=== PATIENT | male | born 1995 | race Caucasian/White ===

== ENCOUNTER 2020-01-05 15:22 | Emergency (ER) | payer OTHER ==
[~2020-01-05] VITALS: Ht 172.7 cm; Wt 87.5 kg
[2020-01-05 15:27] VITALS: Ht 172.7 cm; Wt 87.5 kg
[2020-01-05 16:06] VITALS: BP 132/88
== END 2020-01-05 16:06 | disposition home or self-care (01) ==
LOC: ED 15:22
DX: M54.6 Pain in thoracic spine (principal); M54.5 Low back pain